=== PATIENT | female | born 1945 | race Caucasian/White ===

== ENCOUNTER → 2019-05-15 13:13 | Outpatient (CLI) | payer MEDICARE, OTHER, SELFPAY ==
--- NOTE | 2019-05-15 | DI.MRI.S_ITS ---
BREAST MRI OF BOTH BREASTS- POST LUMPECTOMY: 05/15/2019 CLINICAL: Breast cancer. TECHNIQUE: The patient was placed prone in a dedicated breast imaging coil. Precontrast axial STIR and 3D FLASH without fat saturation sequences were obtained. Both before and after bolus injection of contrast, sequential 1-minute axial 3D FLASH with fat saturation sequences for 3 time points, with subtraction images and maximum intensity projections (MIP's) generated. Delayed sagittal FLASH images with fat saturation were also obtained. 10 cc of Gadavist contrast was injected. Computer-aided detection, including computer algorithm analysis of MRI image data for lesion detection and characterization, pharmacokinetic analysis, with further physician review for interpretation, was performed. COMPARISON: Comparison is made to exams dated: 12/10/2014 mammogram, 04/14/2019 mammogram, 04/17/2019 mammogram, and 05/05/2013 mammogram - [facility]. FINDINGS: Image quality: Excellent. There is mild background parenchymal enhancement. Right breast: Multiple benign appearing low axillary/intramammary lymph nodes are seen in the upper outer quadrant of the right breast. No suspicious right breast enhancing mass or non-masslike enhancement. Left breast: There is a spiculated mass in the 6 clock position of the anterior to mid left breast which anteriorly extends to, and retracts the nipple areolar complex considerably. It demonstrates mixed enhancement kinetics with a portion of rapid and persistent enhancement, and a portion with medium rate initial enhancement which may be secondary to postsurgical changes/scarring. The lesion measures approximately 3.9 x 2.4 x 1.7 cm. There is skin thickening along the lateral aspect of the breast and mild subcutaneous edema consistent with remote postradiation changes. No other suspicious masses or non-masslike enhancement in the left breast. Miscellaneous: There is a collection of 3 enhancing nodules in the left anterior epicardial fat pad the largest of which measure 1.1 cm in greatest diameter. Additionally, along the left anterolateral chest wall associated with rib arcs, are 3 discrete foci of amorphous enhancement without discrete mass lesion. There is a rounded enhancing lesion within the anterior costal cartilage of one of the left lower ribs measuring 7 mm. The visible portions of the liver and heart appear normal. IMPRESSION: KNOWN BIOPSY PROVEN MALIGNANCY 1. Biopsy-proven malignancy measuring 3.9 cm in greatest extent in the left breast retracting and involving the nipple areola complex. 2. No axillary or internal chain adenopathy, however there is a collection of abnormal lymph nodes which appear to be in the left anterior epicardial fat-pad. Correlation with staging CT scan is recommended for improved spatial resolution. 3. Discrete foci of enhancement involving the left anterior ribs and cartilage may be related to treatment changes, however metastatic disease should be considered. Correlate with bone scan and staging CT. 4. No other suspicious areas of enhancement or mass in either breast. COMMENT: The imaging literature indicates that a negative contrast breast MRI examination has a high sensitivity and a moderate specificity for detecting and excluding invasive carcinomas to a detection threshold of 3-5 mm; nonetheless, appropriate clinical and mammographic follow-up are recommended. MRI is not sensitive for detecting DCIS (ductal carcinoma in situ) and may not detect large invasive neoplasms that show only minimal enhancement such as mucinous carcinoma. If there are suspicious calcifications or clinically worrisome palpable masses, then biopsy should still be considered. Invasive neoplasms can be hidden by co-existent and benign enhancement caused by mastitis, hormone therapy effects, radiation therapy, , and recent biopsy or surgery. False positive examinations can occur in a number of circumstances, including breasts that have recently been subject to invasive procedures and those that contain atypical ductal hyperplasia, hormonally stimulated glandular tissue, fat necrosis, or radial scars. This exam was interpreted at Station ID: [id number]. Electronically Signed By: Maura cagle/:05/15/2019 18:24:00 copy to: SHELBY PRITCHETT M.D., ph: [phone], fax: [phone] ACR BI-RADS Category 6: Known biopsy proven malignancy 3346F
== END ==
PROVIDERS: Family Provider Internal Medicine; PCP Internal Medicine; Visit Provider Surgery
DX: C50.012 Malignant neoplasm of nipple and areola, left female breast (principal); R59.0 Localized enlarged lymph nodes
CPT/HCPCS: 77049; A9579

== ENCOUNTER → 2019-07-17 14:47 | Outpatient (CLI) | payer MEDICARE, OTHER, SELFPAY | PROVIDERS: Family Provider Internal Medicine; PCP Internal Medicine; Visit Provider Family Medicine | DX: G60.8 Other hereditary and idiopathic neuropathies (principal); L97.511 Non-pressure chronic ulcer of other part of right foot limited to breakdown of skin; I10 Essential (primary) hypertension | CPT/HCPCS: 11042; 99203; 99213 ==

== ENCOUNTER → 2019-07-30 14:59 | Outpatient (CLI) | payer MEDICARE, OTHER, SELFPAY | PROVIDERS: Family Provider Internal Medicine; PCP Internal Medicine; Visit Provider Family Medicine | DX: G60.8 Other hereditary and idiopathic neuropathies (principal); L97.511 Non-pressure chronic ulcer of other part of right foot limited to breakdown of skin | CPT/HCPCS: 97597 ==

== ENCOUNTER → 2019-08-13 14:05 | Outpatient (CLI) | payer MEDICARE, OTHER, SELFPAY | PROVIDERS: Family Provider Internal Medicine; PCP Internal Medicine; Visit Provider Family Medicine | DX: M27.8 Other specified diseases of jaws (principal); T66.XXXA Radiation sickness, unspecified, initial encounter | CPT/HCPCS: 99212; 99213 ==

== ENCOUNTER 2021-04-20 14:53 | Emergency (ER) | payer OTHER, SELFPAY ==
[2021-04-20] VITALS (24 sets, daily range): BP systolic 90–138; BP diastolic 48–63; PULSE 53–58; RESP 8–37; TEMP 36.7; O2SAT 87–100; BMI 30.9
--- NOTE | 2021-04-20 15:00 | DI.RAD.S_ITS ---
PROCEDURE: XR HIP W PEL IF DONE RT 2V INDICATIONS: fall with existing hardware TECHNIQUE: AP pelvis with lateral view(s) of the right hip(s). COMPARISON: [facility], CR, XR FEMUR RT MIN 2V, 04/20/2021, 14:56. FINDINGS: Bones: There is a partially visualized mid femoral fracture starting at the inferior aspect of the arthroplasty hardware. Pelvic ring appears intact. No suspicious bony lesions. Moderate arthritic narrowing is present within the left hip. Right hip arthroplasty is present. Hardware appears intact without evidence of hardware fracture or periprosthetic loosening. Soft tissues: The visualized bowel gas pattern is normal. No suspicious soft tissue calcifications. IMPRESSION: 1. Partially visualized femoral fracture. Please see x-ray femur report for further details. Dictated by: Anai Prieto M.D. on 04/20/2021 at 16:24 Approved by: Anai Prieto M.D. on 04/20/2021 at 16:25
--- NOTE | 2021-04-20 15:00 | DI.RAD.S_ITS ---
PROCEDURE: XR KNEE RT 1TO2V INDICATIONS: fall with existing hardware TECHNIQUE: 2 views of the knee were acquired. COMPARISON: [facility], CR, XR FEMUR RT MIN 2V, 04/20/2021, 14:56. [facility], CR, XR HIP W PEL IF DONE RT 2V, 04/20/2021, 14:56. FINDINGS: Bones: There is an incompletely visualized mid and distal femoral fracture with mild displacement. Knee arthroplasty is present. Hardware is intact without evidence of hardware fracture or periprosthetic loosening. Soft tissues: No joint effusion. No suspicious soft tissue calcifications. IMPRESSION: Partially visualized femoral fracture. Please see x-ray femur report for further details. Dictated by: Anai Prieto M.D. on 04/20/2021 at 16:26 Approved by: Anai Prieto M.D. on 04/20/2021 at 16:26
[2021-04-20] MEDS: HYDROMORPHONE 1 MG INJ IV (15:15)
--- NOTE | 2021-04-20 15:40 | ED.FALL ---
HPI - Fall <Joseph Aguirre PA-C - Last Filed: 04/21/21 19:05> General Chief Complaint: Fall Stated Complaint: GLF, bilateral knee pain Time Seen by Provider: 04/20/21 15:30 Source: patient and EMS Mode of arrival: EMS History of Present Illness HPI Narrative: Breann presents today with chief complaint right leg pain. She reports that she fell while walking into her house. She tripped on the sidewalk and fell onto both her knees. She had immediate pain in her right leg and was not able to get back up. EMS had to bring her here. 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 She denies hitting her head, chest pain, palpitations, vision changes, shortness of breath, or any other acute concerns or complaints at this time. Related Data Allergies Allergy/AdvReac Type Severity Reaction Status Date / Time Sulfa (Sulfonamide Allergy Verified 04/20/21 15:02 Antibiotics) Review of Systems <Joseph Aguirre PA-C - Last Filed: 04/21/21 19:05> Review of Systems Narrative: As per HPI Patient History <Joseph Aguirre PA-C - Last Filed: 04/21/21 19:05> Social History Smoking Status: Unknown if ever smoked Smoking Status: Unknown if ever smoked alcohol intake frequency: holidays/special occasions only Substance Use Type: does not use Exam <Joseph Aguirre PA-C - Last Filed: 04/21/21 19:05> Narrative Exam Narrative: Exam Narrative: Const General: cooperative, healthy appearing, comfortable, no acute distress, well developed and well groomed Nutritional Appearance: average body habitus Orientation: alert and oriented x3 HENMT Head: normal to inspection and atraumatic Ears: hearing grossly normal bilaterally Nose: external nose normal and nares normal Face and sinus: normal facial exam Neck Neck: normal visual inspection and supple Resp Effort & Inspection: normal respiratory effort, able to speak in complete sentences, no audible wheezes, not labored, no nasal flaring and no respiratory distress Neuro General: alert, oriented x3, tone normal Cognition: normal cognition Speech: speech normal Extremities Decreased range of motion of right leg. Tenderness to palpation over the right hip with maximal pain over mid mid right thigh. Decreased range of motion of right knee. Distal sensation is intact. Pedal pulses are equal bilaterally. Capillary refill is normal. No significant hematoma noted. Psych Appearance: grossly normal and well kempt Mental Status: mental status grossly normal Speech and Movement: speech and movement normal Mood: congruent mood Affect: normal affect Initial Vital Signs Initial Vital Signs: Vital Signs Blood Pressure 134/62 04/20/21 15:01 <Marcelo Corea DO - Last Filed: 04/22/21 01:44> Initial Vital Signs Initial Vital Signs: Vital Signs Blood Pressure 134/62 04/20/21 15:01 Course <Joseph Aguirre PA-C - Last Filed: 04/21/21 19:05> Orders Ordered: Discontinued Medications Hydromorphone HCl (Hydromorphone 1 Mg Inj) 1 mg IV NOW ONE Stop: 04/20/21 15:13 Last Admin: 04/20/21 15:15 Dose: 1 mg Documented by: CHRISTOPH Hydromorphone HCl (Hydromorphone 0.5 Mg Inj) 0.5 mg IV NOW ONE Stop: 04/20/21 18:44 Last Admin: 04/20/21 18:49 Dose: 0.5 mg Documented by: CHRISTOPH Hydromorphone HCl (Hydromorphone 0.5 Mg Inj) 0.5 mg IV NOW ONE Stop: 04/20/21 18:41 Last Admin: 04/20/21 19:31 Dose: 0.5 mg Documented by: JANNET Hydromorphone HCl (Hydromorphone 0.5 Mg Inj) 0.5 mg IV NOW ONE Stop: 04/20/21 19:24 Last Admin: 04/20/21 20:42 Dose: 0.5 mg Documented by: JANNET Lactated Ringer's (Lactated Ringers) 1,000 mls @ 125 mls/hr IV CONT MARY ALICE Last Infusion: 04/20/21 20:59 Dose: 125 mls/hr Documented by: Admin: 04/20/21 17:10 Dose: 125 mls/hr Documented by: CHRISTOPH Vital Signs Vital signs: Vital Signs - 8 hr 04/20/21 15:01 04/20/21 15:02 04/20/21 16:02 Temperature 98.0 F Pulse Rate 53 L 54 L Respiratory Rate 14 16 Blood Pressure 134/62 134/62 115/63 Pulse Oximetry 98 97 <Marcelo Corea DO - Last Filed: 04/22/21 01:44> Orders Ordered: Discontinued Medications Hydromorphone HCl (Hydromorphone 1 Mg Inj) 1 mg IV NOW ONE Stop: 04/20/21 15:13 Last Admin: 04/20/21 15:15 Dose: 1 mg Documented by: CHRISTOPH Hydromorphone HCl (Hydromorphone 0.5 Mg Inj) 0.5 mg IV NOW ONE Stop: 04/20/21 18:44 Last Admin: 04/20/21 18:49 Dose: 0.5 mg Documented by: CHRISTOPH Hydromorphone HCl (Hydromorphone 0.5 Mg Inj) 0.5 mg IV NOW ONE Stop: 04/20/21 18:41 Last Admin: 04/20/21 19:31 Dose: 0.5 mg Documented by: JANNET Hydromorphone HCl (Hydromorphone 0.5 Mg Inj) 0.5 mg IV NOW ONE Stop: 04/20/21 19:24 Last Admin: 04/20/21 20:42 Dose: 0.5 mg Documented by: JANNET Lactated Ringer's (Lactated Ringers) 1,000 mls @ 125 mls/hr IV CONT MARY ALICE Last Infusion: 04/20/21 20:59 Dose: 125 mls/hr Documented by: Admin: 04/20/21 17:10 Dose: 125 mls/hr Documented by: CHRISTOPH Vital Signs Vital signs: Vital Signs - 8 hr 04/20/21 15:01 04/20/21 15:02 04/20/21 16:02 Temperature 98.0 F Pulse Rate 53 L 54 L Respiratory Rate 14 16 Blood Pressure 134/62 134/62 115/63 Pulse Oximetry 98 97 MDM - Fall <Joseph Aguirre PA-C - Last Filed: 04/21/21 19:05> Lab Data Result diagrams: 04/20/21 16:16 04/20/21 16:16 Labs: Lab Results 04/20/21 04/20/21 04/20/21 Range/Units 16:07 16:16 16:16 WBC 7.8 (4.5-11.0) X10^3/uL RBC 3.74 L (4.0-5.2) X10^6/uL Hgb 11.7 L (12.0-16.0) g/dL Hct 34.6 L (36-46) % MCV 92.6 (80-100) fL MCH 31.2 (26-34) PG MCHC 33.7 (30-36) % RDW 13.7 (11.6-14.8) % Plt Count 248 (150-400) X10^3/uL Neut % (Auto) 78.2 H (50-75) % Lymph % (Auto) 13.4 L (25-40) % [place] % (Auto) 6.6 (3-14) % Eos % (Auto) 1.1 L (2-4) % Baso % (Auto) 0.7 (0-2) % Neut # (Auto) 6100 (5908-0688) /uL Lymph # (Auto) 1100 (3208-5694) /uL [place] # (Auto) 500 (0-900) /uL Eos # (Auto) 100 (0-450) /uL Baso # (Auto) 100 (0-100) /uL PT 11.8 (10.1-12.7) SECONDS INR 1.1 (0.9-1.3) Sodium (137-145) mmol/L Potassium (3.4-5.1) mmol/L Chloride (98-107) mmol/L Carbon Dioxide (22-32) mmol/L BUN (7-17) mg/dL Creatinine (0.52-1.04) mg/dL Estimated GFR (>60) mL/min BUN/Creatinine Ratio (6-22) Glucose (80-110) mg/dL Calcium (8.4-10.2) mg/dL Total Bilirubin (0.2-1.3) mg/dL AST (14-36) IU/L ALT (<35) IU/L Alkaline Phosphatase (38-126) U/L Total Protein (6.3-8.2) g/dL Albumin (3.5-5.0) g/dL Globulin (1.7-4.1) g/dL Albumin/Globulin Ratio (1.0-2.8) SARS-CoV-2 (PCR) Negative (Negative) 04/20/21 Range/Units 16:16 WBC (4.5-11.0) X10^3/uL RBC (4.0-5.2) X10^6/uL Hgb (12.0-16.0) g/dL Hct (36-46) % MCV (80-100) fL MCH (26-34) PG MCHC (30-36) % RDW (11.6-14.8) % Plt Count (150-400) X10^3/uL Neut % (Auto) (50-75) % Lymph % (Auto) (25-40) % [place] % (Auto) (3-14) % Eos % (Auto) (2-4) % Baso % (Auto) (0-2) % Neut # (Auto) (4889-9520) /uL Lymph # (Auto) (9919-0462) /uL [place] # (Auto) (0-900) /uL Eos # (Auto) (0-450) /uL Baso # (Auto) (0-100) /uL PT (10.1-12.7) SECONDS INR (0.9-1.3) Sodium 137 (137-145) mmol/L Potassium 4.4 (3.4-5.1) mmol/L Chloride 105 (98-107) mmol/L Carbon Dioxide 27 (22-32) mmol/L BUN 24 H (7-17) mg/dL Creatinine 1.47 H (0.52-1.04) mg/dL Estimated GFR 34.4 L (>60) mL/min BUN/Creatinine Ratio 16.3 (6-22) Glucose 107 (80-110) mg/dL Calcium 9.6 (8.4-10.2) mg/dL Total Bilirubin 0.5 (0.2-1.3) mg/dL AST 25 (14-36) IU/L ALT 16 (<35) IU/L Alkaline Phosphatase 47 (38-126) U/L Total Protein 7.1 (6.3-8.2) g/dL Albumin 4.0 (3.5-5.0) g/dL Globulin 3.1 (1.7-4.1) g/dL Albumin/Globulin Ratio 1.3 (1.0-2.8) SARS-CoV-2 (PCR) (Negative) [facility] Narrative Medical decision making narrative: Patient does not have any significant incidence of neurovascular injury at this time. I discussed her history, presentation and current situation with our orthopedic surgeon. Recommended transferring this individual to [facility] or because of her prosthetics and the location of the fracture. I consulted the orthopedic at [facility] and they agreed to accept this patient in transfer. All of this was discussed with the patient and she verbalized understanding and agreement to the plan. Patient is Jehov[employer] Witness and is requesting no blood products. <Marcelo Corea, DO - Last Filed: 04/22/21 01:44> Lab Data Labs: Lab Results 04/20/21 04/20/21 04/20/21 Range/Units 16:07 16:16 16:16 WBC 7.8 (4.5-11.0) X10^3/uL RBC 3.74 L (4.0-5.2) X10^6/uL Hgb 11.7 L (12.0-16.0) g/dL Hct 34.6 L (36-46) % MCV 92.6 (80-100) fL MCH 31.2 (26-34) PG MCHC 33.7 (30-36) % RDW 13.7 (11.6-14.8) % Plt Count 248 (150-400) X10^3/uL Neut % (Auto) 78.2 H (50-75) % Lymph % (Auto) 13.4 L (25-40) % [place] % (Auto) 6.6 (3-14) % Eos % (Auto) 1.1 L (2-4) % Baso % (Auto) 0.7 (0-2) % Neut # (Auto) 6100 (7828-0995) /uL Lymph # (Auto) 1100 (2067-3427) /uL [place] # (Auto) 500 (0-900) /uL Eos # (Auto) 100 (0-450) /uL Baso # (Auto) 100 (0-100) /uL PT 11.8 (10.1-12.7) SECONDS INR 1.1 (0.9-1.3) Sodium (137-145) mmol/L Potassium (3.4-5.1) mmol/L Chloride (98-107) mmol/L Carbon Dioxide (22-32) mmol/L BUN (7-17) mg/dL Creatinine (0.52-1.04) mg/dL Estimated GFR (>60) mL/min BUN/Creatinine Ratio (6-22) Glucose (80-110) mg/dL Calcium (8.4-10.2) mg/dL Total Bilirubin (0.2-1.3) mg/dL AST (14-36) IU/L ALT (<35) IU/L Alkaline Phosphatase (38-126) U/L Total Protein (6.3-8.2) g/dL Albumin (3.5-5.0) g/dL Globulin (1.7-4.1) g/dL Albumin/Globulin Ratio (1.0-2.8) SARS-CoV-2 (PCR) Negative (Negative) 04/20/21 Range/Units 16:16 WBC (4.5-11.0) X10^3/uL RBC (4.0-5.2) X10^6/uL Hgb (12.0-16.0) g/dL Hct (36-46) % MCV (80-100) fL MCH (26-34) PG MCHC (30-36) % RDW (11.6-14.8) % Plt Count (150-400) X10^3/uL Neut % (Auto) (50-75) % Lymph % (Auto) (25-40) % [place] % (Auto) (3-14) % Eos % (Auto) (2-4) % Baso % (Auto) (0-2) % Neut # (Auto) (2060-7970) /uL Lymph # (Auto) (6796-9006) /uL [place] # (Auto) (0-900) /uL Eos # (Auto) (0-450) /uL Baso # (Auto) (0-100) /uL PT (10.1-12.7) SECONDS INR (0.9-1.3) Sodium 137 (137-145) mmol/L Potassium 4.4 (3.4-5.1) mmol/L Chloride 105 (98-107) mmol/L Carbon Dioxide 27 (22-32) mmol/L BUN 24 H (7-17) mg/dL Creatinine 1.47 H (0.52-1.04) mg/dL Estimated GFR 34.4 L (>60) mL/min BUN/Creatinine Ratio 16.3 (6-22) Glucose 107 (80-110) mg/dL Calcium 9.6 (8.4-10.2) mg/dL Total Bilirubin 0.5 (0.2-1.3) mg/dL AST 25 (14-36) IU/L ALT 16 (<35) IU/L Alkaline Phosphatase 47 (38-126) U/L Total Protein 7.1 (6.3-8.2) g/dL Albumin 4.0 (3.5-5.0) g/dL Globulin 3.1 (1.7-4.1) g/dL Albumin/Globulin Ratio 1.3 (1.0-2.8) SARS-CoV-2 (PCR) (Negative) Discharge Plan Departure Patient Disposition: [facility] Clinical Impression: Femur fracture Qualifiers: Encounter type: initial encounter Femur location: shaft Fracture type: closed Fracture morphology: spiral Fracture alignment: displaced Laterality: right Qualified Code(s): S72.341A - Displaced spiral fracture of shaft of right femur, initial encounter for closed fracture Referrals: Meghana Ramos MD [Primary Care Provider] - <Marcelo Corea DO - Last Filed: 04/22/21 01:44> Cosign ED Attending Cosignature Attestation: I was immediately available in the department for consultation. This documentation has been reviewed and I agree with assessment and plan. Supervised by Marcelo Corea DO
--- NOTE | 2021-04-20 15:48 | DI.RAD.S_ITS ---
PROCEDURE: XR FEMUR RT MIN 2V INDICATIONS: Pain TECHNIQUE: 2 views of the femur were acquired. COMPARISON: None. FINDINGS: Bones: No fractures or dislocations. Postsurgical changes compatible with right hip arthroplasty and right knee arthroplasty. There is a fracture of the midshaft of the right femur which is laterally displaced. No suspicious bony lesions. Soft tissues: No suspicious soft tissue calcifications or masses. IMPRESSION: Right femoral midshaft fracture. Dictated by: Aminata Hess MD, PhD on 04/20/2021 at 16:41 Approved by: Amintaa Hess MD, PhD on 04/20/2021 at 16:42
--- NOTE | 2021-04-20 15:57 | DI.RAD.S_ITS ---
PROCEDURE: XR CHEST 1V INDICATIONS: pre-op TECHNIQUE: One view of the chest was acquired. COMPARISON: None. FINDINGS: Surgical changes and devices: Left axillary clips.. Lungs and pleura: Lungs are clear. No pleural effusions or pneumothorax. Mediastinum: Mediastinal contours appear normal. Heart size is normal. Bones and chest wall: No suspicious bony lesions. Overlying soft tissues appear unremarkable. IMPRESSION: No acute cardiopulmonary disease process. Dictated by: Aminata Hess MD, PhD on 04/20/2021 at 16:15 Approved by: Aminata Hess MD, PhD on 04/20/2021 at 16:21
[2021-04-20 16:23] LABS: Add Manual Diff / Slide Review NO; Basophils Absolute Auto 100 /uL (0-100); Basophils Percent Auto 0.7 % (0-2); Eosinophils Absolute Auto 100 /uL (0-450); Eosinophils Percent Auto 1.1 % (2-4); Hematocrit 34.6 % (36-46); Hemoglobin 11.7 g/dL (12.0-16.0); Lymphocytes Absolute Auto 1100 /uL (1100-4500); Lymphocytes Percent Auto 13.4 % (25-40); Mean Corpuscular HGB Conc 33.7 % (30-36); Mean Corpuscular Hemoglobin 31.2 PG (26-34); Mean Corpuscular Volume 92.6 fL (80-100); Monocytes Absolute Auto 500 /uL (0-900); Monocytes Percent Auto 6.6 % (3-14); Neutrophils Absolute Auto 6100 /uL (1500-7000); Neutrophils Percent Auto 78.2 % (50-75); Platelet Count 248 X10^3/uL (150-400); Red Blood Cell Count 3.74 X10^6/uL (4.0-5.2); Red Cell Distribution Width 13.7 % (11.6-14.8); White Blood Cell Count 7.8 X10^3/uL (4.5-11.0)
[2021-04-20 16:31] LABS: INR 1.1 (0.9-1.3); Prothrombin Time 11.8 SECONDS (10.1-12.7)
[2021-04-20 16:35] LABS: Alanine Aminotransferase 16 IU/L (<35); Albumin Globulin Ratio 1.3 (1.0-2.8); Alkaline Phosphatase 47 U/L (38-126); Aspartate Aminotransferase 25 IU/L (14-36); BUN Creatinine Ratio 16.3 (6-22); Bilirubin Total 0.5 mg/dL (0.2-1.3); Blood Urea Nitrogen 24 mg/dL (7-17); Calcium 9.6 mg/dL (8.4-10.2); Carbon Dioxide 27 mmol/L (22-32); Chloride 105 mmol/L (98-107); Estimated Glomerular Filt Rate 34.4 mL/min (>60); Globulin 3.1 g/dL (1.7-4.1); Glucose 107 mg/dL (80-110); HEMOLYSIS < 15 (0-50); Potassium 4.4 mmol/L (3.4-5.1); Sodium 137 mmol/L (137-145); Total Protein 7.1 g/dL (6.3-8.2)
[2021-04-20] MEDS: LACTATED RINGERS 1,000 ML 125 ML IV (17:10)
[2021-04-20 17:11] LABS: COVID19 - ADMIT (NP swab/PCR) Negative (Negative)
[2021-04-20] MEDS: HYDROMORPHONE 0.5 MG INJ IV ×3 (18:49→20:42)
== END 2021-04-20 20:57 | disposition short-term general hospital (02) ==
PROVIDERS: Emergency Provider Physician Assistant; Family Provider Internal Medicine; PCP Internal Medicine
DX: S72.341A Displaced spiral fracture of shaft of right femur, initial encounter for closed fracture (principal); W19.XXXA Unspecified fall, initial encounter; Z20.822 Contact with and (suspected) exposure to COVID-19
CPT/HCPCS: 36415; 51702; 71045; 73502; 73552; 73560; 80053; 85025; 85610; 87635; 93005; 93010; 96361; 96374; 96376; 99285; C9803; J1170